=== PATIENT | male | born 1995 | race Hispanic/Latino ===

== ENCOUNTER 2018-01-02 12:37 | Emergency (ER) | payer SELFPAY ==
[2018-01-02] MEDS ORDERED: HYDROcodone/Acetaminophen 5/325 mg Tablet ONE (13:31)
--- NOTE | 2018-01-02 14:04 | RAD ---
FRONTAL VIEW PELVIS: Indication: Injury, pain. FINDINGS: Hip joints are maintained. No abnormal diastasis of the sacroiliac joints or symphysis pubis. IMPRESSION: No acute osseous abnormality of the pelvis. POS: [facility]
--- NOTE | 2018-01-02 14:07 | RAD ---
FRONTAL VIEW CHEST: Indication: Fall with pain, injury. FINDINGS: There is no consolidation, pneumothorax, or effusion. Cardiomediastinal silhouette is normal in size. No acute osseous abnormality is visualized. IMPRESSION: No acute abnormality evident. POS: [facility]
== END 2018-01-02 14:39 | disposition home or self-care (01) ==
LOC: ERS 12:37
DX: S30.1XXA Contusion of abdominal wall, initial encounter (principal); S20.211A Contusion of right front wall of thorax, initial encounter; W17.89XA Other fall from one level to another, initial encounter
CPT/HCPCS: 71046; 72170